=== PATIENT | female | born 1950 | race Caucasian/White ===

== ENCOUNTER 2017-10-28 18:51 | Emergency (ER) | payer MEDICARE, OTHER ==
[~2017-10-28] VITALS: Ht 165.1 cm; Wt 76.2 kg
--- NOTE | 2017-10-28 19:15 | NUR ---
AT BEDSIDE FOR ASSESSMENT AND EVAL
[2017-10-28] MEDS ORDERED: TDAP DIPH,PERTUSS,TET VAC/PF 0.5 ML DISP.SYRIN IM ONE ×2 (19:30→19:33)
--- NOTE | 2017-10-28 19:30 | NUR ---
INFORMED CONSENT OBTAINED FROM PATIENT FOR TDAP VACCINE
--- NOTE | 2017-10-28 19:40 | NUR ---
Patient discharged to home in stable conditon. Written and verbal after care instructions given. Patient verbalizes understanding of instructions.
[2017-10-28 19:44] VITALS: BP 131/89
== END 2017-10-28 19:45 | disposition home or self-care (01) ==
LOC: ER 18:52
DX: T22.111A Burn of first degree of right forearm, initial encounter (principal); L25.9 Unspecified contact dermatitis, unspecified cause; B00.9 Herpesviral infection, unspecified; E78.5 Hyperlipidemia, unspecified; Z88.2 Allergy status to sulfonamides; X08.8XXA Exposure to other specified smoke, fire and flames, initial encounter; Y93.89 Activity, other specified; Y92.89 Other specified places as the place of occurrence of the external cause; Y99.8 Other external cause status
CPT/HCPCS: 90715; A4663